=== PATIENT | male | born 1985 | race African-American/Black ===

== ENCOUNTER 2020-01-02 13:27 | Emergency (ER) | payer BC ==
[~2020-01-02] VITALS: Ht 188 cm; Wt 136.4 kg
--- NOTE | 2020-01-02 17:07 | PHYS DOC ---
Past Medical History Past Medical History: No Pertinent History General Adult EDM: Chief Complaint: FEVER HPI: HPI: Reportedly healthy 34-year-old male who presents for evaluation of 2 days of URI symptoms. He reports nonproductive cough, nasal congestion, fever, chills, and diffuse myalgias. No chest pain, but has occasional dyspnea while supine but not always. Not currently dyspneic. No known close contact with COVID-19 positive individuals. No aggravating or alleviating factors. No headache, neck pain or stiffness, focal weakness or paresthesia, chest pain, abdominal pain, nausea,, diarrhea, dysuria, new onset rash. Review of Systems: Review of Systems: Gen: Reports fever, chills. Eyes: No blurred vision, diplopia. ENT: No sore throat. Reports nasal congestion. CV: No CP, palpitations. Resp. No SOB. Reports cough. GI: No abd pain, N/V. : No dysuria, hematuria. Neuro: No ESPOSITO, dizziness, weakness. MSK: No back pain. Reports myalgias. Skin: No acute rash or lesion. Heart Score: Risk Factors: Risk Factors: DM, Current or recent (<one month) smoker, HTN, HLP, family his tory of CAD, obesity. Risk Scores: Score 0 - 3: 2.5% MACE over next 6 weeks - Discharge Home Score 4 - 6: 20.3% MACE over next 6 weeks - Admit for Clinical Observation Score 7 - 10: 72.7% MACE over next 6 weeks - Early Invasive Strategies Physical Exam: PE: Gen: NAD. Well nourished. Head: NC/AT. Eyes: No scleral icterus. No conjunctival injection. ENT: MMM. Posterior OP clear. Neck: Supple. NT. No meningismus. CV: RRR. No murmur or rub. Peripheral pulses intact. Resp: CTAB. Slightly diminished. No increased work of breathing. Abd: Soft. NT. ND. MSK: No peripheral cyanosis. No edema. No calf tenderness or asymmetry. Neuro: A&Ox3. Strength & sensation grossly intact throughout. Skin. Warm. Dry. Psych: Appropriate mood & affect. Current Patient Data: Vital Signs: Vital Signs Date Time Temp Pulse Resp B/P (MAP) Pulse Ox O2 Delivery O2 Flow Rate FiO2 01/02/20 14:37 102.7 106 20 121/63 (82) 95 Room Air 102.7 EKG: EKG: EKG performed at 1710. Sinus tachycardia. Heart rate 114. Normal intervals. No STEMI. Interpreted by me. Radiology/Procedures: Radiology/Procedures: [] Course & Med Decision Making: Course & Med Decision Making Pertinent Labs and Imaging studies reviewed. (See chart for details) In summary, healthy 34-year-old male who presents for evaluation of URI symptoms including nonproductive cough, nasal congestion, fever, chills, loss of taste and smell. Pulse oximetry is 96% on room air. Febrile at 102 upon arrival. Received Tylenol for fever. EKG shows no acute injury pattern. Chest x-ray without acute infiltrative process. The patient is well-appearing and nontoxic. He was swabbed for COVID-19, results pending at time of disposition. Will be discharged home with symptomatic treatment. Outpatient PMD follow-up. Return precautions given. Dragon Disclaimer: Dragon Disclaimer: This electronic medical record was generated, in whole or in part, using a voice recognition dictation system. Departure Departure Impression: Primary Impression: Suspected 2019 novel coronavirus infection Disposition: DC HOME SELF CARE/HOMELESS Condition: STABLE Referrals: NO PCP (PCP) Patient Instructions: Viral Syndrome Additional Instructions: Your are suspected to have COVID-19. You were tested for COVID-19, but your results are still pending. Take tylenol (acetaminophen) or motrin (ibuprofen) as needed for pain/fever. Take the prescribed steroid and cough medication as well. Return to the ED if you develop new or worsening symptoms. Scripts Benzonatate (TESSALON PERLE) 100 Mg Capsule 1 CAP PO TID PRN for COUGH, #21 CAP Prov: LE,DAMEON H DO 01/02/20 Prednisone (PREDNISONE) 50 Mg Tablet 1 TAB PO DAILY, #5 TAB Prov: LE,DAMEON H DO 01/02/20 LE,DAMEON H DO Jan 02, 2020 17:07
[2020-01-02] MEDS ORDERED: ACETAMINOPHEN 500 MG TABLET PO ONE (17:15)
--- NOTE | 2020-01-02 18:00 | RAD ---
CHEST AP ONLY History: Reason: Cough / Spl. Instructions: / History: Comparison: None. Findings: Patchy right mid and bibasilar opacities. No pleural effusion. No pneumothorax. Normal heart size. Impression: 1. Patchy bilateral opacities, may represent atelectasis or consolidations. Electronically signed by: Mark Coelho DO (01/02/2020 5:57 PM) [facility]
[2020-01-02] MEDS ORDERED: PRED50TA PO (18:08)
[2020-01-02] MEDS ORDERED: BENZ100C PO (18:08)
[2020-01-02 18:32] VITALS: BP 121/62
--- NOTE | 2020-01-03 05:24 | EKG ---
[facility] [address] [place] [address] Test Date: 2020-01-02 Test Time: 17:10:41 Pat Name: BONNIE MENARD Department: Room: Gender: M [employer]: : 1985 Requested By: DAMEON HSIEH Order Number: [id number] Reading MD: Measurements Intervals Lorman Rate: 114 P: 26 OR: 136 QRS: 5 QRSD: 78 T: 2 QT: 278 QTc: 386 Interpretive Statements SINUS TACHYCARDIA OTHERWISE NORMAL ECG RI6.02 No previous ECG available for comparison
--- NOTE | 2020-01-03 15:36 | NUR ---
IP: Informed pt of positive COVID test and need to quarantine for 14 days. Pt verbalized understanding.
== END 2020-01-02 19:00 | disposition home or self-care (01) ==
LOC: ER 13:27
DX: U07.1 COVID-19 (principal); R50.9 Fever, unspecified; R09.81 Nasal congestion; R05 Cough
CPT/HCPCS: 71045; 93005; 99285; C9803; U0003